=== PATIENT | female | born 1985 | race Caucasian/White ===

== ENCOUNTER → 2019-09-28 12:13 | Outpatient (BNVA) | payer MEDICARE, MEDICAID, SELFPAY | PROVIDERS: PCP Nurse Practitioner; Visit Provider Nurse Practitioner | DX: I10 Essential (primary) hypertension (principal) | CPT/HCPCS: 80053; 80061; 85025 ==

== ENCOUNTER → 2019-10-12 10:25 | Outpatient (BNVA) | payer MEDICARE, MEDICAID, SELFPAY | PROVIDERS: PCP Nurse Practitioner; Visit Provider Nurse Practitioner | DX: M54.5 Low back pain (principal); M25.551 Pain in right hip; M47.896 Other spondylosis, lumbar region | CPT/HCPCS: 72100; 73502 ==

== ENCOUNTER 2019-10-19 06:00 | Outpatient (RCR) | payer MEDICARE, MEDICAID, SELFPAY | END 2019-10-31 23:59 | disposition home or self-care (01) | LOC: APT 06:00 | PROVIDERS: PCP Nurse Practitioner; Referring Provider Nurse Practitioner; Visit Provider Nurse Practitioner | DX: M79.7 Fibromyalgia (principal) | CPT/HCPCS: 97110; 97163 ==

== ENCOUNTER → 2020-03-12 14:21 | Outpatient (BNVA) | payer MEDICARE, MEDICAID, SELFPAY | PROVIDERS: PCP Nurse Practitioner; Visit Provider Nurse Practitioner Family | DX: S59.912A Unspecified injury of left forearm, initial encounter (principal); S52.602A Unspecified fracture of lower end of left ulna, initial encounter for closed fracture | CPT/HCPCS: 73090 ==

== ENCOUNTER → 2020-03-14 09:46 | Outpatient (BNVA) | payer MEDICARE, MEDICAID, SELFPAY | PROVIDERS: PCP Nurse Practitioner; Visit Provider Specialist | DX: S52.92XA Unspecified fracture of left forearm, initial encounter for closed fracture (principal); S52.602A Unspecified fracture of lower end of left ulna, initial encounter for closed fracture | CPT/HCPCS: 73090 ==

== ENCOUNTER 2020-03-14 14:46 | Outpatient (CLI) | payer MEDICARE, MEDICAID, SELFPAY | END 2020-03-14 14:47 | disposition home or self-care (01) | LOC: SPT 14:47 | PROVIDERS: PCP Nurse Practitioner; Visit Provider Specialist | DX: Z46.89 Encounter for fitting and adjustment of other specified devices (principal) | CPT/HCPCS: 97760; L3982 ==

== ENCOUNTER → 2020-08-30 11:52 | Outpatient (BNVA) | payer MEDICARE, MEDICAID, SELFPAY | PROVIDERS: PCP Nurse Practitioner; Visit Provider Nurse Practitioner | DX: S52.222A Displaced transverse fracture of shaft of left ulna, initial encounter for closed fracture (principal); X58.XXXA Exposure to other specified factors, initial encounter | CPT/HCPCS: 73090 ==

== ENCOUNTER → 2020-11-28 09:07 | Outpatient (BNVA) | payer OTHER, MEDICAID, SELFPAY | PROVIDERS: PCP Nurse Practitioner; Referring Provider Nurse Practitioner Family; Visit Provider Podiatrist Foot & Ankle Surgery | DX: M79.673 Pain in unspecified foot (principal) | CPT/HCPCS: 73630 ==

== ENCOUNTER 2020-11-28 11:40 | Outpatient (CLI) | payer OTHER, MEDICAID, SELFPAY | END 2020-11-28 11:41 | disposition home or self-care (01) | LOC: SPT 11:41 | PROVIDERS: PCP Nurse Practitioner; Visit Provider Podiatrist Foot & Ankle Surgery | DX: Z46.89 Encounter for fitting and adjustment of other specified devices (principal); M76.60 Achilles tendinitis, unspecified leg; M72.2 Plantar fascial fibromatosis | CPT/HCPCS: 97760; L4397 ==

== ENCOUNTER → 2021-02-06 14:47 | Outpatient (BNVA) | payer OTHER, MEDICAID, SELFPAY | PROVIDERS: PCP Nurse Practitioner; Visit Provider Nurse Practitioner | DX: N92.0 Excessive and frequent menstruation with regular cycle (principal); I10 Essential (primary) hypertension; E55.9 Vitamin D deficiency, unspecified | CPT/HCPCS: 80053; 80061; 82306; 84443; 85025 ==

== ENCOUNTER → 2021-03-25 15:40 | Outpatient (BNVA) | payer MEDICARE, MEDICAID, SELFPAY | PROVIDERS: PCP Nurse Practitioner; Referring Provider Nurse Practitioner; Visit Provider Obstetrics & Gynecology | DX: Z12.4 Encounter for screening for malignant neoplasm of cervix (principal); N93.9 Abnormal uterine and vaginal bleeding, unspecified; R10.2 Pelvic and perineal pain | CPT/HCPCS: 83001; 84146; 84443; 84702; 85025; 87624 ==

== ENCOUNTER → 2021-04-02 13:05 | Outpatient (BNVA) | payer MEDICARE, MEDICAID, SELFPAY | PROVIDERS: PCP Nurse Practitioner; Visit Provider Obstetrics & Gynecology | DX: N93.9 Abnormal uterine and vaginal bleeding, unspecified (principal); N85.4 Malposition of uterus; N83.8 Other noninflammatory disorders of ovary, fallopian tube and broad ligament; Z90.721 Acquired absence of ovaries, unilateral | CPT/HCPCS: 76830 ==

== ENCOUNTER → 2021-04-30 11:15 | Outpatient (BNVA) | payer MEDICARE, MEDICAID, SELFPAY | PROVIDERS: PCP Nurse Practitioner; Visit Provider Nurse Practitioner | DX: E55.9 Vitamin D deficiency, unspecified (principal) | CPT/HCPCS: 82306 ==

== ENCOUNTER → 2021-05-29 11:03 | Outpatient (BNVA) | payer MEDICARE, MEDICAID, SELFPAY | PROVIDERS: PCP Nurse Practitioner; Visit Provider Nurse Practitioner Family | DX: R05.9 Cough, unspecified (principal); J98.8 Other specified respiratory disorders | CPT/HCPCS: 87400 ==

== ENCOUNTER → 2021-05-30 13:31 | Day surgery (SDC) | payer MEDICARE, MEDICAID, SELFPAY | PROVIDERS: PCP Nurse Practitioner; Visit Provider Obstetrics & Gynecology | DX: Z01.818 Encounter for other preprocedural examination (principal) | CPT/HCPCS: 93005 ==

== ENCOUNTER → 2021-06-03 08:45 | Outpatient (BNVA) | payer MEDICARE, MEDICAID, SELFPAY | PROVIDERS: PCP Nurse Practitioner; Visit Provider Obstetrics & Gynecology | DX: M79.7 Fibromyalgia (principal); N93.9 Abnormal uterine and vaginal bleeding, unspecified; Z20.822 Contact with and (suspected) exposure to COVID-19 | CPT/HCPCS: 87635 ==

== ENCOUNTER 2021-06-05 12:32 | Observation (INO) | payer MEDICARE, MEDICAID, SELFPAY ==
[2021-05-30 12:53] VITALS: BMI 39.4
--- NOTE | 2021-05-30 13:16 | ANES.PREANE2 ---
Pre-Anesthetic Assessment Height/Weight: Height 1.78 m Weight 124.738 kg Operation Date: 06/05/21 12:05 Proposed Procedures p Laparoscopic Assist Vaginal Hysterectomy(Not Applicable) - Tavon Urbina MD Familial anesthetic complications: None Was Beta Dimitri taken within 24 hours: N/A Was Clonidine taken within 24 hours: N/A Social Tobacco and No alcohol meth use Exam alert, oriented x 3 and regular rate & rhythm Airway Submandibular: within normal limits Cervical ROM: within normal limits Mallampati: Class II Dentition: false (uppers) Pulmonary Chronic Obstructive Pulmonary Disease CV/HEM Arrythmia and Hypertension Metabolic Morbid Obesity Neuropsych Anxiety and Depression Anesthetic Plan ASA status: 3 Anesthesia: General Risk of > 500 ml blood loss (7ml/kg in children): Yes, adequate IV access and fluids planned Medications/Allergies Home Medications Medication Instructions Recorded Confirmed Last Taken Type epinephrine 0.3 mg/0.3 mL 0.3 mg (0.3 mL) IM Q10M PRN #1 ea 07/27/20 05/30/21 Unknown Rx injection, auto-injector (EpiPen) Night Splint to Left #1 ea 11/28/20 05/29/21 Unknown Rx albuterol sulfate 90 mcg/actuation 2 puff INHALATION QID PRN #6.7 g 02/06/21 05/30/21 Unknown Rx aerosol inhaler (ProAir HFA) fluticasone propionate 50 2 spray INTRANASAL DAILY #18.2 ml 02/06/21 05/30/21 Unknown Rx mcg/actuation nasal spray,suspension (Flonase Allergy Relief) ibuprofen 800 mg tablet 800 mg PO BID 30 Days #60 tab 02/06/21 05/30/21 Unknown Rx valsartan 80 mg tablet 80 mg PO DAILY #30 tab 02/06/21 05/30/21 Unknown Rx meloxicam 15 mg tablet (Mobic) 15 mg PO DAILY PRN #20 tab 04/30/21 05/30/21 Unknown Rx ergocalciferol (vitamin D2) 1,250 1,250 mcg PO .weekly #4 cap 05/08/21 05/30/21 Unknown Rx mcg (50,000 unit) capsule doxycycline hyclate 100 mg capsule 100 mg PO BID #10 cap 05/29/21 05/30/21 Unknown Rx prednisone 20 mg tablet 20 mg PO BID #6 tab 05/29/21 05/30/21 Unknown Rx Allergies Allergy/AdvReac Type Severity Reaction Status Date / Time Penicillins Allergy Severe rash Verified 05/30/21 12:47 cefaclor [From Ceclor] Allergy fever Verified 05/30/21 12:47 docosanol [From Abreva] Allergy Lips Verified 05/30/21 12:47 swelling meperidine [From Demerol] Allergy HIves Verified 05/30/21 12:47 PFS Anesthesia Medical History Anxiety and depression Bronchitis, chronic Chronic post-traumatic stress disorder (PTSD) Current smoker Environmental and seasonal allergies Fibromyalgia History of methamphetamine use Migraine 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[age] Surgical History History of section History of hysterectomy partial History of knee surgery left knee History of tonsillectomy History of tubal ligation Family History Mother Bleeding disorder Clotting disorder Grandmother Diabetes maternal Dementia maternal Thyroid condition maternal Grandfather Diabetes paternal Heart disease paternal Father Hypertension Family/Other Stroke paternal uncle Colon cancer maternal uncle, 58 Denies family history of Ovarian cancer Breast cancer Anesthesia complication Uterine cancer Social History Smoking and tobacco status: current every day smoker Second hand smoke exposure: No Smoking risk assessment/counseling performed?: Yes Alcohol intake: unknown Desire information about alcohol rehabilitation?: No Counseling given: No Desire information about substance/drug rehabilitation?: No Counseling given: No Adopted: No Caregiver/support person: No Lives independently: Yes Household members: significant other and children Housing: House Marital status: Single Number of children: 1 service: No Current occupational status: disabled History of recent travel: No Current gender identity: Female Female Reproductive History Date of last menstrual period: 02/06/21 Data Anesthesia Cardiac Studies: No Data to Display
--- NOTE | 2021-05-30 13:31 | ECG_ITS ---
[facility] Test Date: 2021-05-30 Pat Name: Benson Chun Department: Room: Gender: Female In Home Tutor: : 1985 Requested By: Alexandro Mcclain Order Number: [id number] Tima MD: Maye Vega M.D. Measurements Intervals [place] Rate: 88 P: 34 VA: 168 QRS: 30 QRSD: 97 T: 18 QT: 348 QTc: 422 Interpretive Statements SINUS RHYTHM POSSIBLE LEFT ATRIAL ENLARGEMENT [-0.1mV P WAVE IN V1/V2] No previous ECG available for comparison Electronically Signed On 05-31-2021 11:22:17 CDT by Maye Vega M.D. [id number]
[2021-06-05] VITALS (20 sets, daily range): BP systolic 100–134; BP diastolic 57–88; PULSE 56–99; RESP 7–19; TEMP 36.1–36.8; O2SAT 84–98; BMI 39.4
[2021-06-05] MEDS: scopolamine 1.5 Patch 1 PATCH TRANSDERMA (08:01)
[2021-06-05] MEDS: sodium chloride 0.9% 500 ML IV (08:03)
[2021-06-05 08:20] LABS: OR HCG Qualitative Urine Negative (Negative)
[2021-06-05] MEDS: sodium chloride 0.9% 1,000 ML 30 ML IV (08:34)
--- NOTE | 2021-06-05 08:41 | P.ANESUD_ITS ---
Pre-Anesthetic Update Pre-Anesthetic Assessment: Date of Surgery/Procedure: 06/05/21 Preop Liset gnosis: Chronic pelvic pain, menorrhagia Proposed Procedure: Operation Date: 06/05/21 09:15 Proposed Procedures p Laparoscopic Assist Vaginal Hysterectomy(Not Applicable) - Tavon Urbina MD Any changes to Pre-Anesthetic Assessment?: No Last Intake: Intake Last Liquid Date 06/04/21 Last Liquid Time 19:00 Last Solid Date 06/04/21 Last Solid Time 19:00 Vitals: Temperature 97.0 F L 06/05/21 07:48 Temperature Source Temporal Artery S can 06/05/21 07:48 Pulse Rate 85 06/05/21 07:48 Respiratory Rate 18 06/05/21 07:48 Blood Pressure 134/88 06/05/21 07:48 Blood Pressure Natali n 103 06/05/21 07:48 Pulse Oximetry 98 06/05/21 07:48 Oxygen Delivery Me thod 06/05/21 07:50 Exam: Pre-Anes Outpt Exam: alert, oriented x 3, clear to auscultation bilaterally and regular rate & rhythm Cardiac Studies: No Data to Display
[2021-06-05 08:44] LABS: Basophils # 0.1 10^3/uL (0.0-0.1); Basophils % 0.5 %; Eosinophils # 0.2 10^3/uL (0.0-0.8); Eosinophils % 1.8 %; Hematocrit 46.5 % (37.0-47.0); Hemoglobin 15.6 g/dL (11.5-15.3); Lymphocytes # 4.2 10^3/uL (0.8-4.8); Lymphocytes % 34.3 %; Mean Corpuscular HGB Conc 33.5 g/dL (30.0-36.0); Mean Corpuscular Hemoglobin 30.9 pg (28.0-34.0); Mean Corpuscular Volume 92.1 fl (81-99); Monocytes # 0.8 10^3/uL (0.2-0.9); Monocytes % 6.7 %; Neutrophils # 6.69 10^3/uL (1.8-7.7); Neutrophils % 55.4 %; Nucleated Red Blood Cells % 0 %; Platelet Count 337 10^3/cmm (130-400); Red Blood Count 5.05 10^6/uL (4.1-5.3); Red Cell Distribution Width 13.1 % (12.1-15.1); White Blood Count 12.1 10^3/uL (4.0-10.0)
[2021-06-05] MEDS: vancomycin 1,000 MG in sodium chloride 0.9% 250 ML 250 MG IV (08:59)
[2021-06-05 09:03] LABS: Alanine Aminotransferase 23 U/L (0-33); Alkaline Phosphatase 74 IU/L (35-105); Aspartate Amino Transferase 14 U/L (0-32); Blood Urea Nitrogen 15 mg/dL (6-20); Calcium 9.2 mg/dL (8.5-10.5); Carbon Dioxide 23 mmol/L (22-29); Chloride 106 mmol/L (98-107); Globulin 2.3 g/dL (1.3-4.6); Glomerular Filtration Rate 113.1 mL/min (90-130); Glucose 106 mg/dL (65-115); Osmolality Calculated 287 mOsm/kg (285-295); Sodium 138 mmol/L (136-145); Total Bilirubin 0.3 mg/dL (0.15-1.2); Total Protein 6.3 g/dL (6.6-8.7)
[2021-06-05 09:04] LABS: Anion Gap 13.3 (5-19); Potassium 4.3 mmol/L (3.5-5.1)
[2021-06-05 09:19] LABS: Add Urine Culture? Yes; Add Urine Microscopic? YES; Bacteria Urine 2+ /hpf; Bilirubin Urine Neg (Negative); Blood Urine 2+ (Negative); Glucose Urine UA Norm (Normal); Ketones Urine 1+ (Negative); Leukocyte Esterase Urine Negative (Negative); Nitrate Urine Negative (Negative); Protein Urine Neg (Negative); RBC Urine 0-4 /hpf (0-2); Specific Gravity, Urine 1.025 (1.005-1.030); Urine Appearance Hazy (CLEAR); Urine Color Yellow (Yellow); Urobilinogen Urine Norm (Negative); WBC Urine 0-4 /hpf (0-5); pH Urine 5 (5-7)
[2021-06-05 09:22] LABS: Slide Review Slide Review Perform
[2021-06-05] MEDS: levofloxacin-dextrose 5 % 500 MG/100 ML PREMIX 100 MG IV (10:32)
--- NOTE | 2021-06-05 10:33 | W.PM.OPSUD ---
Surgery/Procedure H&P Update DATE OF PROCEDURE: June 05, 2021 DATE H&P PERFORMED: 05/07/21 H&P UPDATE INFORMATION: I have reviewed H&P completed within last 30 days and No changes to prior documentation PREOP DIAGNOSIS: Chronic pelvic pain, menorrhagia PLANNED PROCEDURE: Operation Date: 06/05/21 09:15 Proposed Procedures p Laparoscopic Assist Vaginal Hysterectomy(Not Applicable) - Tavon Urbina MD
--- NOTE | 2021-06-05 12:28 | P.OP_ITS ---
Operative Report Date of procedure: June 05, 2021 Pre-op diagnosis: Preop Diagnosis Chronic pelvic pain, menorrhagia Post-op diagnosis: Chronic pelvic pain, menorrhagia Post-op findings: Normal uterus, Falope-Rings bilaterally, normal left ovary No right ovary identified Procedure done: Laparoscopic assisted total vaginal hysterectomy Specimens removed/disposition: Uterus and fallopian tubes Surgeon: Tavon Urbina MD Estimated blood loss (mL): 150 IV fluids (mL): 600 Urine output (mL): 600 Procedure: After discussing informed consent again, the patient was taken to the operating room where general anesthesia was administered. She was placed in the dorsal lithotomy position in low stirrups and prepped and draped in sterile fashion. Pre-Procedure Time-Out verifying the correct patient identity, correct procedure verified with consent, correct site and side, correct patient position, availability of correct implants and any special equipment or requirements was performed and acknowledge by the OR team. After the initial preparation, the procedure commenced at the vagina. With a Bookwalter vaginal retractor was place to visualize the cervix; the anterior and posterior lips of the cervix were separately grasped and clamped with cortney tooth tenaculum. The cervix was then dilated to a #6 hegar dilator and a uterine manipulator within the uterine cavity for manipulation purposes being careful not to puncture the uterus. A Holt catheter was placed in the bladder. Attention was then turned to the abdomen. The umbilical region was infiltrated with 2% lidocaine with epinephrine. Following infiltration with lidocaine, an intraumbilical incision was made and the Verres needle was gently advanced taking care to feel for the typical sensation of penetrating the peritoneum. With CO2 infiltration, an opening pr essure of 2 mmHg was noted, and following this, a pneumoperitoneum of 15 mmHg was created. A 5 mm Optiview trocar was then passed through the same incision under direct visualization. Trocar was removed and the laparoscope was then inserted through the trocar sleeve. Visualization of the peritoneal cavity was then obtained and a brief inspection did not reveal any signs of complications from entry. Under direct observation, a second incision was made 3 cm above the symphysis pubis, and a 5 mm trocar and sleeve were admitted into the abdomen under direct, laparoscopic visualization, without complication. Once the placement of the ports was complete, the actual laparoscopic procedure began. Beginning on the right side and distally along the length of the fallopian tube with Fallope ring the mesosalpinx was exposed by lifting the tube/ovary up towards the anterior abdominal wall. The mesosalpinx was then sequentially, clamped, ligated, and cut using the Enseal device working alongside the length of the tube and towards the cornua. Once the level of the cornua was reached attention was then turned to the other side. The same process was repeated on the right, sequentially clamping, sealing/ligating, and cutting the mesosalpinx being sure to not injure the adjacent ovarian tissue or other surrounding structures. The round ligament was then clamped, sealed/ligated and cut with the Enseal device. Following this, the anterior leaf of the broad ligament was then taken down on the left side, dissecting down towards the peritoneal reflection at the base of the bladder and adjacent to the cervix. The same process was then repeated on the left side such that both sides met and the anterior leaflet had been appropriately skeletonized. To ensure excellent hemostasis prior to further manipulation, the pedicles of the cardinal ligament was then clamped sealed/ligated and divided on each side using the Enseal device. Attention was then turned to the vaginal aspect of the surgery. The Holt catheter was clamped. A Bookwalter vaginal retractor was placed in the vagina and the uterine manipulator was removed. The tenaculum was repositioned anteriorly and posteriorly. A circumferential incision was made at the cervical vaginal reflection using cautery. This was undermined first anteriorly and a colpotomy made without difficulty. This was then repeated posteriorly and a similar colpotomy made. Dorina retractors were then placed into each of these incisions. Beginning first on the patient's left, the uterosacral and cardinal ligament was clamped, sealed, divided, and suture ligated. Two bites were required to reach the previous dissection margin of the left side. The same process was then repeated on the patient's right hand side, at which point, the specimen was completely freed. Once the sutures had been placed and the pedicles secured, the uterus along with both tubes were removed transvaginally without difficulty. All pedicles were inspected and hemostasis was confirmed. The vaginal vault was then oversewn with a running locking Vicryl suture, securing first the posterior edge of the cuff followed by the anterior edge. Good hemostasis was obtained. Two [id number] sutures were then placed across the vaginal vault to close it. Once these had been tied off, all sutures were trimmed; a wet sponge was placed in the vagina to pack it off while attention was again turned back to the abdomen. All instruments were removed from the vagina at this time. Using the laparoscopic irrigation device, the abdomen was carefully irrigated and inspected to ensure complete hemostasis. Bipolar cautery was used on the pedicles to ensure they were hemostatic and secure. Once the entire abdomen was inspected, the water was suctioned and the instruments carefully removed. The ports were then removed under direct visualization being sure to note hemostasis of the port sites on removal. The incisions were then closed with interrupted Monocryl sutures and Dermabond. The patient tolerated the procedure well, anesthesia reversed, and the patient was taken to the recovery room in stable condition. All sponges, instruments, and sharps were counted and correct x 3.
[2021-06-05] MEDS: ondansetron 2 mg/ML SDV 2 mL 4 MG IVP ×3 (13:00→19:02)
--- NOTE | 2021-06-05 13:08 | SUR.PHASEI ---
1242 Bilat SCDs on and working
--- NOTE | 2021-06-05 13:34 | ANE.PACU2 ---
Inpatient post-anesthesia follow up: Airway intact: Yes Vital signs: Temperature 97.3 F Pulse Rate 72 Respiratory Rate 18 Blood Pressure 101/63 Pulse Oximetry 97 Oxygen Delivery Me thod Nasal Cannula Oxygen Flow Rate 2 Fraction of Inspir ed Oxygen Hydration adequate: Yes Nausea and vomiting: No Pain level: 2 Mental status: Baseline
[2021-06-05] MEDS: dextrose 5%-lactated ringers 1,000 ML 125 ML IV ×2 (13:51→22:11)
[2021-06-05] MEDS: ketorolac 30 mg/mL INJ IVP ×2 (13:53→19:49)
[2021-06-05] MEDS: HYDROcodone-acetaminophen 5-325 mg Tablet PO (15:30)
--- NOTE | 2021-06-05 15:30 | PC.NURSE ---
The patient put her call light on and told this nurse she was in pain rating it 8/10. She requested medication for pain. She has an order for hydrocodone 2 tablets for pain but when this nurse took the medication in the room she requested to only take one tablet as it can make her sick at times. I gave her one tablet and then returned another tablet to the pixis. I checked on the patient again and she said her pain was decreasing.
--- NOTE | 2021-06-05 16:20 | PC.NURSE ---
The patient requested to have some jello and crackers at this time. She was able to eat both and keep them down. She denies nausea or vomiting at this time.
[2021-06-05] MEDS: docusate sodium 100 mg Capsule PO (18:19)
[2021-06-05] MEDS: nicotine 21 mg Patch 1 PATCH TRANSDERMA (19:49)
[2021-06-05] MEDS: doxycycline 100 mg Tablet PO (21:05)
[2021-06-06] MEDS: ketorolac 30 mg/mL INJ IVP (01:02)
[2021-06-06 01:05] VITALS: BP 104/68; PULSE 88; O2SAT 94
[2021-06-06 04:44] VITALS: BP 103/70; PULSE 86; O2SAT 94
[2021-06-06 04:50] LABS: Hemoglobin 14.3 g/dL (11.5-15.3); Mean Corpuscular HGB Conc 33.3 g/dL (30.0-36.0); Mean Corpuscular Hemoglobin 30.5 pg (28.0-34.0); Mean Corpuscular Volume 91.7 fl (81-99); Mean Platelet Volume 10.4 fL (7.4-10.4); Platelet Count 328 10^3/cmm (130-400); Red Blood Count 4.69 10^6/uL (4.1-5.3); Red Cell Distribution Width 13.1 % (12.1-15.1); White Blood Count 24.3 10^3/uL (4.0-10.0)
--- NOTE | 2021-06-06 10:40 | P.DS_ITS ---
Discharge Providers CLINICAL REGISTERED NURSE Date of Admission: 06/05/21 12:32 Date of Discharge: 06/06/21 Attending Provider at Admission: Tavon Urbina MD Attending Provider at Discharge: Tavon Urbina MD Primary CLINICAL REGISTERED NURSE: Tavon Urbina MD Primary Care Provider: VIDAL Durbin Diagnoses at Discharge Discharge Diagnosis (1) Pelvic pain in female: Status: Acute Reason for Visit Reason for Visit: abnormal uterine bleeding Hospital Course Hospital Course Mrs. Willis 35-year-old female with a history of chronic pelvic pain and abnormal uterine bleeding unresponsive to medical management. Was admitted for planned elective laparoscopic assisted total vaginal hysterectomy. The LAVH was performed without complications. Overnight observation uneventful. She is afebrile hemodynamically stable postoperative day 1. Tolerating diet well. Ambulating without difficulty. Pain well under control. Patient requested not to be prescribed hydrocodone because it makes her nauseous and she prefers Tylenol 3. Physical Exam Narrative: GA: Alert and oriented ?3. HEENT: WNL. Heart: Regular rate and rhythm. Lungs: Clear to auscultation bilaterally. Abdomen: Bowel sounds present, minimal tenderness, incision clean and dry, no redness, pain or edema. TRANSIT SPECIALIST: No bleeding. Extremities: No edema, no cyanosis, no calves pain. Urinary Catheter Management: Holt: Cath Placed During This Visit: yes, but has since been removed by the nurse Reason for Continuing Indwelling Catheter: Decision to DC Catheter Urinary Catheter Date of Insertion: 06/05/21 Urinary Catheter Time of Insertion: 11:05 Date Urinary Catheter Removed: 06/06/21 Time Urinary Catheter Discontinued: 04:35 History History History 2 Term 1 Miscarriages/Ectopic 1 0 Living Children 1 Discharge Data Studies Completed and Pending Pending at discharge Category Date Time Status ES surgery / GI images Routine Exams 06/05/21 10:12 Taken Urine Culture Routine Lab 06/05/21 07:32 Results Pathology: Surgical [PTH] Routine Pth 06/05/21 12:43 Received Laboratory Results WBC 24.3 10^3/uL (4.0-10.0) H 06/06/21 04:35 RBC 4.69 10^6/uL (4.1-5.3) 06/06/21 04:35 Hgb 14.3 g/dL (11.5-15.3) 06/06/21 04:35 Hct 43.0 % (37.0-47.0) 06/06/21 04:35 MCV 91.7 fl (81-99) 06/06/21 04:35 MCH 30.5 pg (28.0-34.0) 06/06/21 04:35 MCHC 33.3 g/dL (30.0-36.0) 06/06/21 04:35 RDW 13.1 % (12.1-15.1) 06/06/21 04:35 Plt Count 328 10^3/cmm (130-400) 06/06/21 04:35 MPV 10.4 fL (7.4-10.4) 06/06/21 04:35 Neut % (Auto) 55.4 % 06/05/21 08:00 Lymph % (Auto) 34.3 % 06/05/21 08:00 Mason % (Auto) 6.7 % 06/05/21 08:00 Eos % (Auto) 1.8 % 06/05/21 08:00 Baso % (Auto) 0.5 % 06/05/21 08:00 Neut # (Auto) 6.69 10^3/uL (1.8-7.7) 06/05/21 08:00 Lymph # (Auto) 4.2 10^3/uL (0.8-4.8) 06/05/21 08:00 Mason # (Auto) 0.8 10^3/uL (0.2-0.9) 06/05/21 08:00 Eos # (Auto) 0.2 10^3/uL (0.0-0.8) 06/05/21 08:00 Baso # (Auto) 0.1 10^3/uL (0.0-0.1) 06/05/21 08:00 Nucleated RBC % (auto) 0 % 06/05/21 08:00 Nucleated RBCs # 0.0 /100WBC 06/05/21 08:00 Sodium 138 mmol/L (136-145) 06/05/21 08:00 Potassium 4.3 mmol/L (3.5-5.1) 06/05/21 08:00 Chloride 106 mmol/L (98-107) 06/05/21 08:00 Carbon Dioxide 23 mmol/L (22-29) 06/05/21 08:00 Anion Gap 13.3 (5-19) 06/05/21 08:00 BUN 15 mg/dL (6-20) 06/05/21 08:00 Creatinine 0.6 mg/dL (0.5-0.9) 06/05/21 08:00 GFR Calculation 113.1 mL/min (90-130) 06/05/21 08:00 Glucose 106 mg/dL (65-115) 06/05/21 08:00 Calculated Osmolality 287 mOsm/kg (285-295) 06/05/21 08:00 Calcium 9.2 mg/dL (8.5-10.5) 06/05/21 08:00 Total Bilirubin 0.3 mg/dL (0.15-1.2) 06/05/21 08:00 AST 14 U/L (0-32) 06/05/21 08:00 ALT 23 U/L (0-33) 06/05/21 08:00 Alkaline Phosphatase 74 IU/L (35-105) 06/05/21 08:00 Total Protein 6.3 g/dL (6.6-8.7) L 06/05/21 08:00 Albumin 4.0 g/dL (3.5-5.2) 06/05/21 08:00 Globulin 2.3 g/dL (1.3-4.6) 06/05/21 08:00 Urine Color Yellow (Yellow) 06/05/21 07:32 Urine Appearance Hazy (CLEAR) A 06/05/21 07:32 Urine pH 5 (5-7) 06/05/21 07:32 Ur Specific [place] 1.025 (1.005-1.030) 06/05/21 07:32 Urine Protein Neg (Negative) 06/05/21 07:32 Urine Glucose (UA) Norm (Normal) 06/05/21 07:32 Urine Ketones 1+ (Negative) H 06/05/21 07:32 Urine Blood 2+ (Negative) H 06/05/21 07:32 Urine Nitrate Negative (Negative) 06/05/21 07:32 Urine Bilirubin Neg (Negative) 06/05/21 07:32 Urine Urobilinogen Norm mg/dL (Negative) 06/05/21 07:32 Ur Leukocyte Esterase Negative (Negative) 06/05/21 07:32 Urine RBC 0-4 /hpf (0-2) H 06/05/21 07:32 Urine WBC 0-4 /hpf (0-5) H 06/05/21 07:32 Ur Squamous Epith Cells 5-10 /hpf (0-5) H 06/05/21 07:32 Amorphous Sediment Not Reportable 06/05/21 07:32 Urine Bacteria 2+ /hpf (NONE) H 06/05/21 07:32 Urine HCG, Qual Negative (Negative) 06/05/21 07:30 Blood Type O Positive 06/05/21 08:00 Rho(D) Type Positive 06/05/21 08:00 Antibody Screen Negative 06/05/21 08:00 Vitals Last Vital Signs Temp 98.2 F 06/05/21 18:44 Pulse 86 06/06/21 04:44 Resp 15 06/05/21 23:01 BP 103/70 06/06/21 04:44 Pulse Ox 94 06/06/21 04:44 Discharge Plan Discharge Patient Disposition: Home Condition: Stable Prescriptions: New acetaminophen-codeine 300-60 mg tablet 1 tab PO Q6H PRN (Reason: pain) Qty: 20 0RF acetaminophen 325 mg capsule 325 mg PO Q4H PRN (Reason: fever or pain) Qty: 60 0RF ibuprofen 800 mg tablet 800 mg PO TID PRN (Reason: pain) Qty: 60 0RF Continued meloxicam [Mobic] 15 mg tablet 15 mg PO DAILY PRN (Reason: pain in feet) Qty: 20 0RF Rx Instructions: DO NOT take the same day as ibuprofen epinephrine [EpiPen] 0.3 mg/0.3 mL auto-injector 0.3 mg IM Q10M PRN (Reason: anaphylaxis) Qty: 1 2RF Rx Instructions: for 3 doses (DME) Night Splint to Left See Rx Instructions .Route .MEDSUPPLY Qty: 1 0RF Rx Instructions: As directed valsartan 80 mg tablet 80 mg PO DAILY Qty: 30 5RF fluticasone propionate [Flonase Allergy Relief] 50 mcg/actuation spray,suspension 2 spray INTRANASAL DAILY Qty: 18.2 5RF Rx Instructions: administer into each nostril albuterol sulfate [ProAir HFA] 90 mcg/actuation HFA aerosol inhaler 2 puff inhalation QID PRN (Reason: shortness of breath or wheezing) Qty: 6.7 5RF ibuprofen 800 mg tablet 800 mg PO BID PRN (Reason: Pain (Scale Score 4-6)) 0RF doxycycline hyclate 100 mg capsule 100 mg PO BID Qty: 10 0RF ergocalciferol (vitamin D2) 1,250 mcg (50,000 unit) capsule 1,250 mcg PO .weekly Qty: 4 2RF Discharge Orders: Discharge Order (Routine); Ordered 06/06/21 Ordered By: Tavon Urbina Referrals: Tavon Uribna MD [Physician] - 06/18/21 1:45 pm (Your 2 week post-operative appointment is scheduled for 06/18/21 @1:45. Your 6 week post-operative appointment is scheduled for 07/16/21 @9:30. ) Discharge Diet: Usual diet Discharge Activity: Limit activity as instructed Patient Instructions: Laparoscopic Hysterectomy (DC), Vaginal Hysterectomy (DC), OB Discharge Report, OB Food/Drug Interaction Guide, Opioid Safety Activity Restrictions/Additional Instructions: 1. Please call [facility] on next working day to make your post-operative appointment in 2 weeks. 2. Please stay home until you come back to the clinic on first post-operative check up. 3. Please follow instructions on your medications CAREFULLY. 4. If you have abdominal incision, do not cover it unless dressing is necessary because of drainage. OK to shower, but avoid bath. Leave steri-strips until they fall off. If they are still on one week after surgery, you may remove them. 5. If you had vaginal surgery or vaginal repair, Dr. Urbina may instruct you to take SITZ bath. 6. Yellow, blood tinged odorous vaginal discharge is usually normal after hysterectomy or vaginal surgeries. 7. No sexual intercourse, tampons, or douches until you are completely released from the post-operative care. 8. Avoid constipation by eating right and maybe using some Metamucil or Milk of Magnesia. 9. All prescription refills are given during the working hours. Please do no wait till it runs out. Call the clinic at [phone] before your medication runs out. The clinic will get in touch with your doctor to prescribe medications if necessary. 10. Please remain within 40 mile radius from our hospital because emergencies do happen now and then during the post-operative period. 11. If you have stairs at home, take one step at a time slowly and minimize the number of trips. It helps to stay in one floor for the next few days. No lifting except what you can lift by one hand until you are released from the post-operative care. 12. Driving is discouraged until you are well healed. It may be 3-4 weeks before you feel strong enough to drive. You should be able to turn and look through the rear window without pain and you should be able to push the brake pedal very hard without pain before you drive. No fast rules, but SAFETY should be your primary concern. DO NOT drive if you are on sedating medications such as narcotics. 13. Call the clinic (during working hours) to make urgent appointment or go to the Emergency room, if any of the following occurs: i. Vaginal bleeding becomes heavy, more than a period. ii. Incision becomes red and sore, or drains pus. iii. Your temperature is over 100.4 or you have chill. iv. IV site becomes red and swollen (a little ``knot?? is usually OK) v. Persistent nausea and vomiting vi. Persistent constipation or diarrhea vii. Rash or allergic reaction to medications. Discharge Attestations CLINICAL REGISTERED NURSE Time Spent in Discharge Care*: greater than 30 min Coding Level of Care Code Acute Forming Machine Adjuster for John Mobley Diagnoses Pelvic pain in female R10.2
[2021-06-06 12:15] VITALS: BP 143/92; PULSE 86; RESP 17; TEMP 36.4; O2SAT 95
[2021-06-06 12:20] VITALS: BP 143/92; PULSE 86; RESP 17; TEMP 36.4; O2SAT 95
[2021-06-06 14:26] VITALS: PULSE 82; RESP 17; O2SAT 95
== END 2021-06-06 12:28 | disposition home or self-care (01) ==
LOC: OBGYN 12:35
PROVIDERS: Admitting Provider Obstetrics & Gynecology; PCP Nurse Practitioner; Visit Provider Obstetrics & Gynecology
PROC: 0UT9FZZ Resection of Uterus, Via Natural or Artificial Opening With Percutaneous Endoscopic Assistance (ICD-10-PCS; CPT 58552; principal; 2021-06-05 09:05)
DX: R10.2 Pelvic and perineal pain (principal); G89.29 Other chronic pain; N92.0 Excessive and frequent menstruation with regular cycle; F17.210 Nicotine dependence, cigarettes, uncomplicated
CPT/HCPCS: 58552; 36415; 80053; 81001; 81025; 84703; 85025; 85027; 86850; 86900; 87077; 87086; 87186; 88307; G0378; J1100; J1170; J1885; J1956; J2405; J2704; J2710; J3010; J3370; J3490; J7030; J7040; J7050

== ENCOUNTER → 2021-08-12 14:15 | Outpatient (BNVA) | payer MEDICARE, MEDICAID, SELFPAY | PROVIDERS: PCP Nurse Practitioner; Visit Provider Nurse Practitioner | DX: J30.89 Other allergic rhinitis (principal); E55.9 Vitamin D deficiency, unspecified; J42 Unspecified chronic bronchitis | CPT/HCPCS: 80053; 82306 ==

== ENCOUNTER → 2021-11-11 09:30 | Outpatient (BNVA) | payer MEDICARE, MEDICAID, SELFPAY | PROVIDERS: PCP Nurse Practitioner; Visit Provider Nurse Practitioner Family | DX: R05.9 Cough, unspecified (principal); U07.1 COVID-19 | CPT/HCPCS: 87426 ==

== ENCOUNTER → 2022-02-17 16:00 | Outpatient (BNVA) | payer MEDICARE, MEDICAID, SELFPAY | PROVIDERS: PCP Nurse Practitioner; Visit Provider Nurse Practitioner Family | DX: M79.7 Fibromyalgia (principal) | CPT/HCPCS: 80053 ==

== ENCOUNTER → 2022-03-13 11:04 | Outpatient (BNVA) | payer MEDICARE, MEDICAID, SELFPAY | PROVIDERS: PCP Nurse Practitioner; Visit Provider Podiatrist Foot & Ankle Surgery | DX: B35.1 Tinea unguium (principal); L60.0 Ingrowing nail | CPT/HCPCS: 11750 ==

== ENCOUNTER → 2022-04-07 14:04 | Outpatient (BNVA) | payer MEDICARE, MEDICAID, SELFPAY | PROVIDERS: PCP Nurse Practitioner; Visit Provider Podiatrist Foot & Ankle Surgery | DX: L60.0 Ingrowing nail (principal); Z98.890 Other specified postprocedural states | CPT/HCPCS: 99213 ==

== ENCOUNTER → 2022-04-29 11:27 | Outpatient (BNVA) | payer MEDICARE, MEDICAID, SELFPAY | PROVIDERS: PCP Nurse Practitioner; Visit Provider Nurse Practitioner Family | DX: I10 Essential (primary) hypertension (principal); R73.9 Hyperglycemia, unspecified; S52.202A Unspecified fracture of shaft of left ulna, initial encounter for closed fracture; X58.XXXA Exposure to other specified factors, initial encounter; E66.01 Morbid (severe) obesity due to excess calories; Z68.35 Body mass index [BMI] 35.0-35.9, adult; F41.9 Anxiety disorder, unspecified; F32.9 Major depressive disorder, single episode, unspecified; M79.7 Fibromyalgia | CPT/HCPCS: 80053; 80061; 82306; 83036 ==

== ENCOUNTER → 2022-10-13 17:23 | Outpatient (BNVA) | payer MEDICARE, MEDICAID, SELFPAY | PROVIDERS: PCP Nurse Practitioner Family; Visit Provider Nurse Practitioner Family | DX: F41.9 Anxiety disorder, unspecified (principal); F32.9 Major depressive disorder, single episode, unspecified; M79.7 Fibromyalgia; I10 Essential (primary) hypertension; E78.5 Hyperlipidemia, unspecified | CPT/HCPCS: 80053; 80061 ==

== ENCOUNTER → 2022-10-21 13:13 | Outpatient (BNVA) | payer MEDICARE, MEDICAID, SELFPAY | PROVIDERS: PCP Nurse Practitioner Family; Visit Provider Nurse Practitioner Family | DX: E78.5 Hyperlipidemia, unspecified (principal); F32.9 Major depressive disorder, single episode, unspecified; F41.9 Anxiety disorder, unspecified; I10 Essential (primary) hypertension; M79.7 Fibromyalgia | CPT/HCPCS: 80053; 80061 ==

== ENCOUNTER → 2022-10-27 09:44 | Outpatient (BNVA) | payer MEDICARE, MEDICAID, SELFPAY | PROVIDERS: PCP Nurse Practitioner Family; Visit Provider Otolaryngology | DX: G89.29 Other chronic pain; M26.623 Arthralgia of bilateral temporomandibular joint; H69.92 Unspecified Eustachian tube disorder, left ear; H93.12 Tinnitus, left ear; H90.42 Sensorineural hearing loss, unilateral, left ear, with unrestricted hearing on the contralateral side | CPT/HCPCS: 99203 ==

== ENCOUNTER 2022-11-11 20:55 | Emergency (ER) | payer MEDICARE, MEDICAID, SELFPAY ==
[2022-11-11 21:01] VITALS: BP 131/86; PULSE 102; RESP 20; TEMP 36.6; O2SAT 98; BMI 36.6
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
[2022-11-11] MEDS: acetaminophen 500 mg Tablet 1000 MG PO (21:56)
[2022-11-11 22:03] VITALS: RESP 16
[2022-11-11 22:16] VITALS: PULSE 93; RESP 16; O2SAT 99
== END 2022-11-11 22:17 | disposition home or self-care (01) ==
PROVIDERS: Emergency Provider Nurse Practitioner Family; PCP Nurse Practitioner Family
DX: S00.03XA Contusion of scalp, initial encounter (principal); S50.10XA Contusion of unspecified forearm, initial encounter; Y00.XXXA Assault by blunt object, initial encounter; F17.210 Nicotine dependence, cigarettes, uncomplicated
CPT/HCPCS: 70450; 99284

== ENCOUNTER 2022-12-08 15:39 | Outpatient (CLI) | payer MEDICARE, MEDICAID, SELFPAY ==
--- NOTE | 2022-12-08 15:51 | XRR_ITS ---
PROCEDURE INFORMATION: Exam: XR Lumbosacral Spine Exam date and time: 12/08/2022 4:10 PM Age: 37 years old Clinical indication: Pain and injury or trauma; Fall; Blunt trauma (contusions or hematomas); Low back pain; Injury details: Fell Thursday, pain in knee and ankle, arthritis TECHNIQUE: Imaging protocol: Radiologic exam of the lumbosacral spine. Views: 2 or 3 views. COMPARISON: CR XR lumbar spine 2-3V* [id number] 10/12/2019 10:25 AM FINDINGS: Bones/joints: No acute fracture. Normal alignment. Mild multilevel endplate degenerative changes. Mild facet arthropathy at the lower lumbar spine. Disc spaces are preserved. Soft tissues: Unremarkable. XR/XR lumbar spine f/e only [id number] IMPRESSION: No acute findings. Mild degenerative changes of the lumbar spine as described in the body of the report.
--- NOTE | 2022-12-08 15:52 | XRR_ITS ---
PROCEDURE INFORMATION: Exam: XR Right Knee Exam date and time: 12/08/2022 4:10 PM Age: 37 years old Clinical indication: Pain and injury or trauma; Fall; Blunt trauma; Right; Injury details: Fell Thursday, pain in knee and ankle, arthritis; Additional info: Pain in right knee TECHNIQUE: Imaging protocol: Radiologic exam of the right knee. Views: 3 views. COMPARISON: [place] [id number] ORTH 11/28/2020 9:15 AM FINDINGS: Bones/joints: Osseous structures are intact. Negative for fracture. Joint spaces are preserved. Soft tissues: Normal. XR/XR knee RT 3V* [id number] IMPRESSION: No acute findings.
--- NOTE | 2022-12-08 15:53 | XRR_ITS ---
PROCEDURE INFORMATION: Exam: XR Right Hip Exam date and time: 12/08/2022 4:10 PM Age: 37 years old Clinical indication: Injury or trauma; Fall; Blunt trauma (contusions or hematomas); Right; Hip; Injury details: Fell Thursday, pain in knee and ankle, arthritis; Additional info: Pain in right hip TECHNIQUE: Imaging protocol: Radiologic exam of the right hip. Views: 1 view hip with pelvis when performed. COMPARISON: CR XR hip RT 2-3V wo/w pel* [id number] 10/12/2019 10:25 AM FINDINGS: Bones/joints: No acute fracture. Mild DJD/joint space narrowing of the right hip. Soft tissues: Unremarkable. XR/XR hip RT 2-3V wo/w pel* [id number] IMPRESSION: No acute findings. Mild DJD of the right hip.
--- NOTE | 2022-12-08 15:53 | XRR_ITS ---
PROCEDURE INFORMATION: Exam: XR Right Ankle Exam date and time: 12/08/2022 4:10 PM Age: 37 years old Clinical indication: Pain and injury or trauma; Fall; Sprain or strain; Right; Injury details: Fell Thursday, pain in knee and ankle, arthritis; Additional info: Pain in right ankle TECHNIQUE: Imaging protocol: Radiologic exam of the right ankle. Views: 3 or more views. COMPARISON: [place] [id number] ORTH 11/28/2020 9:15 AM FINDINGS: Bones/joints: Osseous structures are intact. Negative for fracture. Joint spaces are preserved. Soft tissues: Normal. XR/XR ankle RT min 3V* [id number] IMPRESSION: No acute findings.
== END 2022-12-08 15:40 | disposition home or self-care (01) ==
LOC: RAD 15:45
PROVIDERS: PCP Nurse Practitioner Family; Visit Provider Nurse Practitioner Family
DX: M25.561 Pain in right knee (principal); M16.11 Unilateral primary osteoarthritis, right hip; M25.571 Pain in right ankle and joints of right foot; M54.51 Vertebrogenic low back pain; W19.XXXA Unspecified fall, initial encounter; M47.816 Spondylosis without myelopathy or radiculopathy, lumbar region
CPT/HCPCS: 72120; 73502; 73562; 73610

== ENCOUNTER 2023-01-08 11:44 | Outpatient (CLI) | payer MEDICARE, MEDICAID, SELFPAY ==
--- NOTE | 2023-01-08 11:47 | MR_ITS ---
WS: [id number] MRI LUMBAR SPINE NONCONTRAST TECHNIQUE: Sagittal T1, T2 and STIR imaging. Axial T1 and T2 imaging. CLINICAL INFORMATION: VERTEBROGENIC LOW BACK PAIN COMPARISON: None. FINDINGS: Mild lumbar curve. No acute compression. No high-grade central canal stenosis. LEFT paracentral protrusion C6-C7 seen on the decorating machine operator imaging. L1-L2: Normal. L2-L3: Mild annular bulging. Slight narrowing of the RIGHT greater than LEFT subarticular recess. Mil d facet arthropathy. Spinal canal is patent. L3-L4: Mild annular bulging with slight narrowing of the LEFT subarticular recess. Spinal canal and f oramen are patent. Mild facet arthropathy. L4-L5: Mild annular bulging. Narrowing of the subarticular recess bilaterally. Mild facet arthropathy . Mild bilateral foraminal narrowing. L5-S1: Mild annular bulging. Spinal canal and foramen are patent. Mild facet arthropathy. Visualized pelvic bony structures: Normal. Paravertebral soft tissues: Normal. IMPRESSION: 1. Mild lumbar curve. No acute compression. No high-grade central canal stenosis. 2. Mild annular bulging L2-3 with mild central canal stenosis and narrowing of the subarticular rece ss bilaterally. Mild bilateral foraminal narrowing. 3. Mild annular bulging L3-4 with slight narrowing of the LEFT subarticular recess. 4. Mild annular bulging L4-5 with narrowing of the subarticular recess bilaterally and mild bilatera l foraminal narrowing. 5. LEFT paracentral disc protrusion C6-7 in the cervical spine on the decorating machine operator imaging. This can be fol lowed up with cervical spine MRI.
== END 2023-01-08 11:45 | disposition home or self-care (01) ==
LOC: RAD 11:44
PROVIDERS: PCP Nurse Practitioner Family; Visit Provider Nurse Practitioner
DX: M54.51 Vertebrogenic low back pain (principal); M50.220 Other cervical disc displacement, mid-cervical region, unspecified level
CPT/HCPCS: 72148

== ENCOUNTER → 2023-01-14 13:14 | Outpatient (BNVA) | payer MEDICARE, MEDICAID, SELFPAY | PROVIDERS: PCP Nurse Practitioner Family; Visit Provider Nurse Practitioner Family | DX: M79.602 Pain in left arm (principal); Z87.81 Personal history of (healed) traumatic fracture | CPT/HCPCS: 73090 ==

== ENCOUNTER → 2023-03-18 16:47 | Outpatient (BNVA) | payer MEDICARE, MEDICAID, SELFPAY | PROVIDERS: PCP Nurse Practitioner Family; Visit Provider Nurse Practitioner Family | DX: E78.2 Mixed hyperlipidemia (principal); F41.9 Anxiety disorder, unspecified; F32.9 Major depressive disorder, single episode, unspecified; I10 Essential (primary) hypertension | CPT/HCPCS: 80053; 80061 ==

== ENCOUNTER → 2023-06-29 16:31 | Outpatient (BNVA) | payer MEDICARE, MEDICAID, SELFPAY | PROVIDERS: PCP Nurse Practitioner Family; Visit Provider Nurse Practitioner Family | DX: I10 Essential (primary) hypertension | CPT/HCPCS: 80053; 80061; 84443; 85025 ==

== ENCOUNTER → 2023-10-12 16:46 | Outpatient (BNVA) | payer MEDICARE, MEDICAID, SELFPAY | PROVIDERS: PCP Nurse Practitioner Family; Visit Provider Nurse Practitioner Family | DX: I10 Essential (primary) hypertension (principal); F41.9 Anxiety disorder, unspecified; F32.9 Major depressive disorder, single episode, unspecified | CPT/HCPCS: 80053; 80061; 85025 ==

== ENCOUNTER 2023-11-17 16:36 | Outpatient (CLI) | payer MEDICARE, MEDICAID, SELFPAY ==
--- NOTE | 2023-11-17 16:44 | XRR_ITS ---
PROCEDURE INFORMATION: Exam: XR Right Foot Exam date and time: 11/17/2023 4:48 PM Age: 37 years old Clinical indication: Injury or trauma; Other: Stepped on by horse; Blunt trauma; Right; Injury date: 2 weeks ago; Injury details: Horse stepped on her RT foot two weeks ago. Pain and swelling in the top of the foot since. ; Additional info: Right foot pain, stepped on by a horse TECHNIQUE: Imaging protocol: Radiologic exam of the right foot. Views: 3 or more views. COMPARISON: [place] [id number] ORTH 11/28/2020 9:15 AM FINDINGS: Bones/joints: Normal. No acute osseous, joint, or soft tissue abnormality. No fracture or dislocation. Soft tissues: Normal. XR/XR foot RT min 3V* [id number] IMPRESSION: No acute findings.
== END 2023-11-17 16:37 | disposition home or self-care (01) ==
LOC: RAD 16:37
PROVIDERS: PCP Nurse Practitioner Family; Visit Provider Nurse Practitioner Family
DX: M79.671 Pain in right foot (principal); S99.921A Unspecified injury of right foot, initial encounter; X58.XXXA Exposure to other specified factors, initial encounter
CPT/HCPCS: 73630

== ENCOUNTER → 2023-12-14 10:57 | Outpatient (BNVA) | payer MEDICARE, MEDICAID, SELFPAY | PROVIDERS: PCP Nurse Practitioner Family; Visit Provider Podiatrist Foot & Ankle Surgery | DX: W55.19XA Other contact with horse, initial encounter (principal); S90.31XA Contusion of right foot, initial encounter | CPT/HCPCS: 73630 ==

== ENCOUNTER 2023-12-14 11:17 | Outpatient (CLI) | payer MEDICARE, MEDICAID, SELFPAY | END 2023-12-14 11:18 | disposition home or self-care (01) | LOC: SPT 11:18 | PROVIDERS: PCP Nurse Practitioner Family; Visit Provider Podiatrist Foot & Ankle Surgery | DX: S90.31XA Contusion of right foot, initial encounter (principal); W55.19XA Other contact with horse, initial encounter | CPT/HCPCS: 97760; 99213; L4361 ==

== ENCOUNTER → 2024-01-04 09:13 | Outpatient (BNVA) | payer MEDICARE, MEDICAID, SELFPAY | PROVIDERS: PCP Nurse Practitioner Family; Visit Provider Podiatrist Foot & Ankle Surgery | DX: W55.19XA Other contact with horse, initial encounter (principal); S90.31XA Contusion of right foot, initial encounter; M79.671 Pain in right foot | CPT/HCPCS: 73630; 99213 ==

== ENCOUNTER 2024-01-05 15:41 | Outpatient (CLI) | payer MEDICARE, MEDICAID, SELFPAY ==
--- NOTE | 2024-01-05 16:00 | MR_ITS ---
WS: [id number] MRI RIGHT FOOT WITHOUT CONTRAST. COMPARISON: Radiographs 01/04/2024 Multiplanar, multisequence imaging is performed without contrast. No marrow edema noted in the midfoot or metatarsals. There is mild soft tissue edema which is centere d predominantly between the proximal second and third metatarsals. There is no widening between the first and second metatarsals. The alignment of the second metatarsal and the second cuneiform is appropriate. 3 bands of the Lisfranc ligament are identified and they do appear intact. There is a small amount of adjacent fluid. No soft tissue hematoma. The intertarsal ligament between the proximal second and third metatarsals is not well identified. Th ere is fluid in the expected location of the ligament. No ligament is noted at the attachment to the third metatarsal. There is no separation of the tarsal bones. MR/MR foot RT wo con* [id number] IMPRESSION: 1. No marrow edema or fracture RIGHT foot. 2. 3 bands of the Lisfranc ligament appear intact. 3. Increased edema between the proximal second and third metatarsals. 4. Poorly visualized intertarsal ligament between the proximal second and thir d metatarsals. Suspect at least a partial if not complete tear. No separation o f the metatarsals.
== END 2024-01-05 15:42 | disposition home or self-care (01) ==
LOC: RAD 15:42
PROVIDERS: PCP Nurse Practitioner Family; Visit Provider Podiatrist Foot & Ankle Surgery
DX: S93.611A Sprain of tarsal ligament of right foot, initial encounter (principal); S90.31XA Contusion of right foot, initial encounter; W55.19XA Other contact with horse, initial encounter
CPT/HCPCS: 73718

== ENCOUNTER → 2024-02-01 10:03 | Outpatient (BNVA) | payer MEDICARE, MEDICAID, SELFPAY | PROVIDERS: PCP Nurse Practitioner Family; Visit Provider Podiatrist Foot & Ankle Surgery | DX: M79.671 Pain in right foot (principal); S90.31XS Contusion of right foot, sequela; W55.1 Contact with horse | CPT/HCPCS: 99213 ==

== ENCOUNTER 2025-01-17 15:27 | Outpatient (CLI) | payer MEDICARE, MEDICAID, SELFPAY ==
--- NOTE | 2025-01-17 15:33 | XR_ITS ---
WS: [id number] XR lumbar spine 2-3V* [id number] REASON FOR EXAM: M54.50 - Low back pain, unspecified FINDINGS: Relatively normal lumbar curvatures. No significant compression deformity or focal lesion of the lumbar vertebrae. There is moderate narrowing of the L4-L5 and L5-S1 disc spaces. Remaining disc spaces are intact and relatively well preserved. Mild to moderate endplate sclerosis and mild osteophytosis of the lumbar vertebrae L1-S1. XR/XR lumbar spine 2-3V* [id number] IMPRESSION: Mild to moderate degenerative spondylosis.
== END 2025-01-17 15:28 | disposition home or self-care (01) ==
LOC: RAD 15:30
PROVIDERS: PCP Clinical Nurse Specialist Adult Health; Visit Provider Clinical Nurse Specialist Adult Health
DX: M54.50 Low back pain, unspecified (principal); M48.07 Spinal stenosis, lumbosacral region; M48.061 Spinal stenosis, lumbar region without neurogenic claudication; M25.78 Osteophyte, vertebrae
CPT/HCPCS: 72100

== ENCOUNTER 2025-01-18 13:28 | Outpatient (CLI) | payer MEDICARE, MEDICAID, SELFPAY ==
--- NOTE | 2025-01-18 13:31 | MM_ITS ---
WS: [id number] BILATERAL 3D TOMOSYNTHESIS DIGITAL SCREENING MAMMOGRAPHY WITH CAD CLINICAL INFORMATION: SCREENING HISTORY: Screening mammogram. No current complaints. COMPARISON: Baseline TECHNIQUE: Bilateral CC and MLO views. FINDINGS: Scattered fibroglandular densities bilaterally. No suspicious focal mass, asymmetry, calcifications, or architectural distortion. No evidence of malignancy. MM/MM scr BI tomosynthesis [id number] IMPRESSION: DENSITY: There are scattered areas of fibroglandular density. BI-RADS: 1 - Negative. FOLLOW UP: 1 Year Follow-up Recommend return to annual screening mammography.
== END 2025-01-18 13:29 | disposition home or self-care (01) ==
LOC: MOBLMAM 13:30
PROVIDERS: PCP Clinical Nurse Specialist Adult Health; Visit Provider Clinical Nurse Specialist Adult Health
DX: Z12.31 Encounter for screening mammogram for malignant neoplasm of breast (principal); R92.323 Mammographic fibroglandular density, bilateral breasts
CPT/HCPCS: 77063; 77067